=== PATIENT | male | born 1960 | race Caucasian/White ===

== ENCOUNTER 2021-01-08 17:06 | Inpatient (IN) ==
[2021-01-08] MEDS ORDERED: Ipratropium/Albuterol Neb 3 ML IH ONE (17:31)
[2021-01-08] MEDS ORDERED: cefTRIAXone 2,000 MG in Water for inj. (sterile) 10 ML IVP ONE (17:31)
[2021-01-08] MEDS ORDERED: methylPREDNISolone 125 MG/2 ML VIAL IVP ONE (17:31)
[2021-01-08] MEDS ORDERED: 0.9 % Sodium Chloride 1,000 ML IVC ONE ×2 (17:31→18:15)
[2021-01-08] MEDS ORDERED: Azithromycin 500 MG in 0.9 % Sodium Chloride 250 ML IVPB ONE (17:31)
[2021-01-08 17:47] LABS: Hematocrit 43.1 % (37.5-50.1); Hemoglobin 14.7 g/dL (12.9-16.9); Mean Corpuscular HGB Conc 34.1 g/dL (31.6-35.5); Mean Corpuscular Hemoglobin 30.1 pg (28.0-33.3); Mean Corpuscular Volume 88.3 fL (83.0-100.0); Mean Platelet Volume 9.6 fL (9.4-12.4); Platelet Count 255 K/mcL (140-400); Red Blood Count 4.88 M/mcL (4.19-5.50); Red Cell Distribution Width 14.7 % (11.5-14.5); White Blood Count 28.7 K/mcL (4.3-11.1)
[2021-01-08 17:56] LABS: INR 1.3; Prothrombin Time 14.6 Seconds (9.4-12.1)
[2021-01-08 17:59] LABS: Activated Partial Thrombo Time 32.6 Seconds (26.0-36.0)
[2021-01-08 18:03] LABS: BUN/Creatinine Ratio 21 (6-26); Blood Urea Nitrogen 17 mg/dL (8-23); Calcium 9.4 mg/dL (8.6-10.3); Carbon Dioxide 32 mEq/L (23-29); Chloride 98 mEq/L (98-107); Glucose 120 mg/dL (70-105); Osmolality,Calculated 285 (280-300); Sodium 136 mEq/L (136-145); eGFR For African Americans > 60 (> 60); eGFR For Non-African Americans > 60 (> 60)
[2021-01-08 18:04] LABS: ABG Base Excess 5 mEq/L (-2 to 3); ABG HCO3 30 mEq/L (21-27); ABG Oxygen Saturation 91 % (95-98); ABG PCO2 47 mmHg (35-45); ABG PH 7.41 pH Units (7.32-7.45); ABG PO2 61 mmHg (85-104); ABG TCO2 32 mEq/L (20-26)
[2021-01-08] MEDS ORDERED: cefTRIAXone 2,000 MG in Water for inj. (sterile) 20 ML IVP ONE (18:04)
[2021-01-08 18:10] LABS: Troponin I 0.13 ng/mL (< 0.04)
[2021-01-08] MEDS ORDERED: Aspirin 81 MG TAB.CHEW PO ONE (18:15)
[2021-01-08] MEDS ORDERED: *HR* LORazepam 2 MG/ML VIAL IVP ONE (18:18)
[2021-01-08] MEDS ORDERED: Naloxone 0.4 MG/ML INJ IVP PRN (18:23)
[2021-01-08] MEDS ORDERED: Acetaminophen 325 MG TABLET PO PRN (18:23)
[2021-01-08] MEDS ORDERED: Ondansetron 4 MG/2 ML VIAL IVP PRN (18:23)
[2021-01-08] MEDS ORDERED: *HR* HYDROcodone/Acet 5/325 mg TABLET PO PRN (18:23)
[2021-01-08] MEDS ORDERED: *HR* LORazepam 2 MG/ML VIAL IVP PRN (18:26)
[2021-01-08 18:46] LABS: Lymphocytes # 1.2 K/mcL (0.6-4.6); Monocytes # 1.7 K/mcL (0.0-1.3); Neutrophils # 25.8 K/mcL (1.6-8.9)
[2021-01-08 18:47] LABS: Platelet Estimate Normal (Normal)
[2021-01-08] MEDS: Ipratropium/Albuterol Neb 3 ML IH SCH (20:46)
[2021-01-08] MEDS: 0.9 % Sodium Chloride 1,000 ML IVC SCH ×2 (22:01→22:12)
[2021-01-08] MEDS: *HR* Heparin 5,000 UNIT/ML VIAL SQ SCH (22:13)
[2021-01-09 00:11] LABS: ABG Base Excess 2 mEq/L (-2 to 3); ABG HCO3 32 mEq/L (21-27); ABG Oxygen Saturation 95 % (95-98); ABG PCO2 70 mmHg (35-45); ABG PH 7.27 pH Units (7.32-7.45); ABG PO2 87 mmHg (85-104); ABG TCO2 34 mEq/L (20-26)
[2021-01-09] MEDS: Ipratropium/Albuterol Neb 3 ML IH SCH ×6 (00:41→21:32)
[2021-01-09] MEDS: 0.9 % Sodium Chloride 1,000 ML IVC SCH ×2 (01:55→06:09)
[2021-01-09] MEDS: *HR* Heparin 5,000 UNIT/ML VIAL SQ SCH ×3 (06:10→22:42)
[2021-01-09 07:41] LABS: BUN/Creatinine Ratio 20 (6-26); Blood Urea Nitrogen 15 mg/dL (8-23); Carbon Dioxide 26 mEq/L (23-29); Chloride 102 mEq/L (98-107); Glucose 147 mg/dL (70-105); Osmolality,Calculated 290 (280-300); Potassium 4.4 mEq/L (3.5-5.1); Sodium 138 mEq/L (136-145); eGFR For African Americans > 60 (> 60); eGFR For Non-African Americans > 60 (> 60)
[2021-01-09] MEDS ORDERED: *HR* Labetalol 20 MG/4 ML SYRINGE IVP ONE (07:45)
[2021-01-09] MEDS: amLODIPine 5 MG TABLET PO SCH (08:03)
[2021-01-09] MEDS: cefTRIAXone 2,000 MG in 0.9 % Sodium Chloride Mini Bag 100 ML IVPB SCH (08:03)
[2021-01-09] MEDS: MethylPREDNISolone 40 MG/ML VIAL IVP SCH (17:08)
[2021-01-09] MEDS: Azithromycin 500 MG in 0.9 % Sodium Chloride 250 ML IVPB SCH (18:52)
[2021-01-10] MEDS: Ipratropium/Albuterol Neb 3 ML IH SCH ×7 (00:28→22:55)
[2021-01-10] MEDS: *HR* Heparin 5,000 UNIT/ML VIAL SQ SCH ×3 (05:14→23:59)
[2021-01-10] MEDS: MethylPREDNISolone 40 MG/ML VIAL IVP SCH ×2 (05:15→16:43)
[2021-01-10 07:25] LABS: Basophils % 0.1 %; Hematocrit 36.1 % (37.5-50.1); Hemoglobin 11.6 g/dL (12.9-16.9); Immature Granulocytes % 0.8 % (0-4); Lymphocytes % 4.1 %; Mean Corpuscular HGB Conc 32.1 g/dL (31.6-35.5); Mean Corpuscular Hemoglobin 29.9 pg (28.0-33.3); Mean Platelet Volume 10.6 fL (9.4-12.4); Monocytes # 0.8 K/mcL (0.0-1.3); Monocytes % 3.2 %; Neutrophils # 22.5 K/mcL (1.6-8.9); Platelet Count 180 K/mcL (140-400); Red Blood Count 3.88 M/mcL (4.19-5.50); Red Cell Distribution Width 15.1 % (11.5-14.5); Segmented Neutrophils % 91.8 %; White Blood Count 24.5 K/mcL (4.3-11.1)
[2021-01-10 08:12] LABS: Troponin I 0.03 ng/mL (< 0.04)
[2021-01-10 08:16] LABS: BUN/Creatinine Ratio 41 (6-26); Blood Urea Nitrogen 24 mg/dL (8-23); Calcium 8.7 mg/dL (8.6-10.3); Carbon Dioxide 35 mEq/L (23-29); Chloride 99 mEq/L (98-107); Glucose 162 mg/dL (70-105); Osmolality,Calculated 294 (280-300); Potassium 4.5 mEq/L (3.5-5.1); Sodium 138 mEq/L (136-145); eGFR For African Americans > 60 (> 60); eGFR For Non-African Americans > 60 (> 60)
[2021-01-10] MEDS: amLODIPine 5 MG TABLET PO SCH (08:34)
[2021-01-10] MEDS: cefTRIAXone 2,000 MG in 0.9 % Sodium Chloride Mini Bag 100 ML IVPB SCH (08:34)
[2021-01-10 08:51] LABS: Platelet Estimate Normal (Normal)
[2021-01-10] MEDS: Azithromycin 500 MG in 0.9 % Sodium Chloride 250 ML IVPB SCH (19:04)
[2021-01-11] MEDS: Ipratropium/Albuterol Neb 3 ML IH SCH ×3 (04:25→11:00)
[2021-01-11] MEDS: *HR* Heparin 5,000 UNIT/ML VIAL SQ SCH ×3 (05:58→23:05)
[2021-01-11] MEDS: MethylPREDNISolone 40 MG/ML VIAL IVP SCH (05:58)
[2021-01-11 06:08] LABS: Hematocrit 37.3 % (37.5-50.1); Hemoglobin 12.1 g/dL (12.9-16.9); Mean Corpuscular HGB Conc 32.4 g/dL (31.6-35.5); Mean Corpuscular Hemoglobin 29.9 pg (28.0-33.3); Mean Corpuscular Volume 92.1 fL (83.0-100.0); Mean Platelet Volume 10.4 fL (9.4-12.4); Platelet Count 207 K/mcL (140-400); Red Blood Count 4.05 M/mcL (4.19-5.50); Red Cell Distribution Width 15.2 % (11.5-14.5); White Blood Count 22.9 K/mcL (4.3-11.1)
[2021-01-11 06:28] LABS: BUN/Creatinine Ratio 43 (6-26); Blood Urea Nitrogen 23 mg/dL (8-23); Calcium 8.8 mg/dL (8.6-10.3); Carbon Dioxide 36 mEq/L (23-29); Chloride 98 mEq/L (98-107); Glucose 127 mg/dL (70-105); Osmolality,Calculated 291 (280-300); Potassium 4.5 mEq/L (3.5-5.1); Sodium 138 mEq/L (136-145); eGFR For African Americans > 60 (> 60); eGFR For Non-African Americans > 60 (> 60)
[2021-01-11] MEDS: cefTRIAXone 2,000 MG in 0.9 % Sodium Chloride Mini Bag 100 ML IVPB SCH (09:42)
[2021-01-11] MEDS: amLODIPine 5 MG TABLET PO SCH (09:42)
[2021-01-11] MEDS: Ipratropium/Albuterol Neb 3 ML IH PRN ×2 (15:06→20:22)
[2021-01-11] MEDS: Azithromycin 500 MG in 0.9 % Sodium Chloride 250 ML IVPB SCH (19:48)
[2021-01-12] MEDS: *HR* Heparin 5,000 UNIT/ML VIAL SQ SCH (06:35)
[2021-01-12 06:45] LABS: Mean Corpuscular HGB Conc 33.3 g/dL (31.6-35.5); Mean Corpuscular Hemoglobin 30.4 pg (28.0-33.3); Mean Corpuscular Volume 91.3 fL (83.0-100.0); Mean Platelet Volume 10.3 fL (9.4-12.4); Platelet Count 238 K/mcL (140-400); Red Cell Distribution Width 15.5 % (11.5-14.5); White Blood Count 20.2 K/mcL (4.3-11.1)
[2021-01-12 07:14] VITALS: BP 160/92; PULSE 102; RESP 22; TEMP 98; O2SAT 96
[2021-01-12] MEDS: amLODIPine 5 MG TABLET PO SCH (08:11)
[2021-01-12] MEDS: cefTRIAXone 2,000 MG in 0.9 % Sodium Chloride Mini Bag 100 ML IVPB SCH (08:12)
[2021-01-12] MEDS ORDERED: Azithromycin 250 MG TABLET PO SCH (09:00)
[2021-01-12] MEDS ORDERED: predniSONE 20 MG TABLET PO SCH (09:00)
== END 2021-01-12 11:45 | disposition home or self-care (01) | DRG 871 ==
LOC: EMEROOPIK 17:06 → INPPIK 17:06
PROVIDERS: ADMIT Family Medicine; ATTEND Family Medicine